=== PATIENT | female | born 1980 | race Hispanic/Latino ===

== ENCOUNTER 2018-03-08 12:45 | Emergency (ER) | payer BC ==
[2018-03-08 12:59] VITALS: TEMP 98.2; O2SAT 100
[2018-03-08] MEDS ORDERED: DiphenhydrAMINE 50 mg/ml Inj ONE (13:46)
[2018-03-08] MEDS: DiphenhydrAMINE 50 mg/ml Inj IVP STA (14:03)
[2018-03-08] MEDS: Sodium Chloride 0.9% 1,000 ML IV STA (14:03)
[2018-03-08 14:06] LABS: BASO % 0.7 % (0.0-2.0); EOS % 0.7 % (0.0-4.0); HEMOGLOBIN 10.8 g/dL (12.0-16.0); LYMPH % 16.5 % (20.0-40.0); MEAN CELL VOLUME 88.4 fl (81.0-99.0); MEAN CORPUSCULAR HEMOGLOBIN 28.8 pg (27.0-31.0); MEAN CORPUSCULAR HGB CONC 32.5 g/dL (33.0-37.0); MONO # 0.3 K/uL (0.0-0.8); MONO % 4.2 % (0.0-10.0); NEUT # 4.8 K/uL (1.8-7.0); NEUT % 77.9 % (50.0-75.0); RBC 3.74 Mil/uL (3.80-5.20); RED CELL DISTRIBUTION WIDTH 13.3 % (11.5-14.5); WHITE BLOOD COUNT 6.2 K/uL (4.8-10.8)
--- NOTE | 2018-03-08 14:13 | ED PDOC ---
HPI: Headache Time Seen by Provider: 03/08/18 13:22 Chief Complaint (Nursing): Headache Chief Complaint (Provider): Migraine History Per: Patient History/Exam Limitations: no limitations Onset/Duration Of Symptoms: Intermittent Episodes (x4 weeks), Worse Since (this morning) Current Symptoms Are (Timing): Still Present Additional Complaint(s): 38 year old female with a history of migraines presents to the ED for evaluation of a headache concentrated in her forehead associated with light / sound sensitivity and nausea, consistent with previous migraines . Patient states that over the past four weeks her migraines have been coming on more consistently, but initially were being resolved by her rizatriptan. This morning she reports waking up with a mild headache and attempted to sleep it off, but it became worse and was not relieved by her usual medication. Otherwise, denies head injury, fever, vomiting, and abdominal pain. PMD: [facility] Past Medical History Reviewed: Historical Data, Nursing Documentation, Vital Signs Vital Signs: Last Vital Signs Temp 98.2 F 03/08/18 12:56 Pulse 81 03/08/18 12:56 Resp 16 03/08/18 12:56 BP 110/71 03/08/18 12:56 Pulse Ox 100 03/08/18 12:56 - Medical History PMH: Migraine Other PMH: fibroids - Surgical History Surgical History: Appendectomy - Family History Family History: States: Unknown Family Hx - Social History Current smoker - smoking cessation education provided: No Alcohol: Social Drugs: Denies - Home Medications Home Medications: Ambulatory Orders Medication Instructions Recorded Metoclopramide [Reglan] 10 mg PO TID PRN #15 tab 03/08/18 RX: Naproxen [Naprosyn] 500 mg PO BID PRN #14 tab 03/08/18 - Allergies Allergies/Adverse Reactions: Allergies Allergy/AdvReac Type Severity Reaction Status Date / Time Sulfa (Sulfonamide Allergy ANAPHYLAXIS Verified 03/08/18 12:56 Antibiotics) Review of Systems ROS Statement: Except As Marked, All Systems Reviewed And Found Negative Constitutional: Negative for: Fever Gastrointestinal: Positive for: Nausea. Negative for: Vomiting, Abdominal Pain Neurological: Positive for: Headache (concentrated in forehead, associated with light and sound sensitivity consistent with previous migraines) Physical Exam - Reviewed Nursing Documentation Reviewed: Yes Vital Signs Reviewed: Yes - Physical Exam Appears: Positive for: In Acute Distress (mild painful) Eye Exam: Positive for: Normal appearance, Other (light sensitivity) ENT: Positive for: Normal ENT Inspection Cardiovascular/Chest: Positive for: Regular Rate, Rhythm Respiratory: Positive for: Normal Breath Sounds. Negative for: Respiratory Distress Gastrointestinal/Abdominal: Positive for: Normal Exam, Soft. Negative for: Tenderness Neurologic/Psych: Positive for: Alert, Oriented (x3), Gait (steady, unassisted), Other (equal foam charger strength bilaterally) - Laboratory Results Result Diagrams: 03/08/18 13:57 03/08/18 13:57 Urine POC: Negative - ECG ECG: Positive for: Interpreted By Tn ECG Rhythm: Positive for: Sinus Rhythm. Negative for: ST/T Changes Rate: 68 O2 Sat by Pulse Oximetry: 100 (RA) Pulse Ox Interpretation: Normal Medical Decision Making Medical Decision Making: Time: 1336 Initial Impression: migraine Initial Plan: --CMP --U-preg --CBC with differential --Benadryl 50mg IVP --IV fluids --Reglan 10mg IVP 1407 Secondary to patient reporting increased nausea, Zofran 4mg IVP ordered. On evaluation, patient is lying on stretcher, feeling very anxious. Heart rate was noted to be in the 130s and she denied any IV meds. She appeared jittery, likely due to a dystonic reaction. While observing pt, her heart rate slowly decreased to in the 90s and improved. 1438 On reevaluation, patient is sleeping comfortably. 1500 On re-evaluation, pt. reports headache has improved drastically but still present. Requesting CT to be done. CT head ordered. 1800 On re-evaluation, pt. informed of CT results. States headache has improved even more but still present. Prefers to f/u with neurologist tomorrow but would like another dose meds before being discharged. Toradol 15mg IV ordered. Advised to f/u with her neuro but is to return to ED immediately if symptoms worsen. - Scribe Attestation: Documented by Stephanie Bruno, acting as a scribe for Ciro Muse PA-C Provider Scribe Attestation: All medical record entries made by the Scribe were at my direction and pers onally dictated by me. I have reviewed the chart and agree that the record accurately reflects my personal performance of the history, physical exam, medical decision making, and the department course for this patient. I have also personally directed, reviewed, and agree with the discharge instructions and disposition. Disposition - Clinical Impression Clinical Impression: Acute headache - Patient ED Disposition Is Patient to be Admitted: No - Disposition Referrals: Justyn Ashley MD [Medical Doctor] - [facility] [Outside] Disposition: Routine/Home Disposition Time: 18:02 Condition: IMPROVED Additional Instructions: RETURN TO ED IMMEDIATELY IF SYMPTOMS WORSEN FOLLOW UP WITH YOUR NEUROLOGIST FOR FURTHER EVALUATION QUIRINO FERNANDEZ, thank you for letting us take care of you today. Your provider was Mikki Bates MD and you were treated for MIGRAINE. The emergency medical care you received today was directed at your acute symptoms. If you were prescribed any medication, please fill it and take as directed. It may take several days for your symptoms to resolve. Return to the Emergency Department if your symptoms worsen, do not improve, or if you have any other problems. Please contact your doctor or call one of the physicians/clinics you have been referred to that are listed on the Patient Visit Information form that is included in your discharge packet. Bring any paperwork you were given at discharge with you along with any medications you are taking to your follow up visit. Our treatment cannot replace ongoing medical care by a primary care provider outside of the emergency department. Thank you for allowing the [facility] team to be part of your care today. If you had an X-Ray or CT scan: A Radiologist will review the ED reading if any change in treatment is needed we will contact you. If you had a blood, urine, or wound culture: It will take several days for the results, if any change in treatment is needed we will contact you. If you had an STI test: It will take 48 hours for the results. Please call after 1 week if you have not heard back. Prescriptions: Metoclopramide [Reglan] 10 mg PO TID PRN #15 tab PRN Reason: headache or nausea RX: Naproxen [Naprosyn] 500 mg PO BID PRN #14 tab PRN Reason: Pain Instructions: Migraine Headaches in Adults, Acute Headache (ED) Forms: [employer] (Swazi)
[2018-03-08 14:25] LABS: ALB/GLOB RATIO 1.3 (1.0-2.1); ALBUMIN 4.1 g/dL (3.5-5.0); ALT/SGPT 25 U/L (9-52); AST/SGOT 65 U/L (14-36); BLOOD UREA NITROGEN 8 mg/dl (7-17); CALCIUM 9.2 mg/dL (8.4-10.2); GFR NON-AFRICAN AMERICAN > 60
--- NOTE | 2018-03-08 17:02 | CT ---
Date of service: 03/08/2018 PROCEDURE: CT HEAD WITHOUT CONTRAST. HISTORY: headache COMPARISON: None available. TECHNIQUE: Axial computed tomography images were obtained through the head/brain without intravenous contrast. Radiation dose: Total exam DLP = 746.54 mGy-cm. This CT exam was performed using one or more of the following dose reduction techniques: Automated exposure control, adjustment of the mA and/or kV according to patient size, and/or use of iterative reconstruction technique. FINDINGS: HEMORRHAGE: No intracranial hemorrhage. BRAIN: Mcfarland-white matter differentiation is preserved. There is no mass, mass effect or abnormal extra-axial fluid collection. There is no territorial infarction. The midline sagittal structures are normal. VENTRICLES: The ventricles are normal in size, shape and configuration. CALVARIUM: There is no calvarial fracture or extracranial soft tissue swelling. PARANASAL SINUSES: Predominantly clear. MASTOID AIR CELLS: Predominantly clear. OTHER FINDINGS: None. IMPRESSION: No acute intracranial abnormality.
[2018-03-08 18:34] VITALS: BP 98/62; RESP 19
[2018-03-08 23:15] VITALS: PULSE 68
--- NOTE | 2018-03-09 08:01 | CARD ---
APPROVED REPORT Date of service: 03/08/2018 EKG Measurement Heart [id number] <Conclusion> Normal sinus rhythm Normal ECG
== END 2018-03-08 18:33 | disposition home or self-care (01) ==
LOC: H.ER 12:45
DX: R51 Headache (principal)
CPT/HCPCS: 70450; 80053; 81025; 85025; 93005; 96374; 96375; 99285; J1200; J1885; J2765; J7030